=== PATIENT | female | born 1965 | race African-American/Black ===

== ENCOUNTER 2018-02-13 02:10 | Observation (INO) | payer BC, OTHER ==
[2018-02-13 03:07] LABS: Absolute Lymphocytes (CBC) 2.9 K/uL (0.7-4.9); Absolute Monocytes 0.5 K/uL (0.1-1.3); Absolute Neutrophil 5.1 K/uL (1.8-8.0); Basophils % 0.2 % (0-1.3); Eosinophils % 0.8 % (0-4.4); Hematocrit 34.9 % (36.0-45.0); Lymphocytes % 33.7 % (15.3-44.8); MCH 27.9 pg (27.0-35.0); MCV 86.1 fL (80-100); MPV 9.8 fL (7.6-11.3); RBC Red Blood Cell Count 4.06 M/uL (3.86-4.86)
[2018-02-13 03:10] LABS: Protime INR 1.04
[2018-02-13] MEDS ORDERED: ONDANSETRON 4 MG/2 ML VIAL ONE ×2 (03:10→05:02)
[2018-02-13] MEDS ORDERED: ASPIRIN 81 MG CHEWABLE TABLET ONE (03:10)
[2018-02-13] MEDS ORDERED: MORPHINE 4 MG/ML SYR ONE ×2 (03:12→05:02)
[2018-02-13 03:26] LABS: ALT/SGPT 17 U/L (12-78); AST/SGOT 20 U/L (15-37); Albumin 3.3 g/dL (3.4-5.0); Alkaline Phosphatase 93 U/L (45-117); BUN Blood Urea Nitrogen 20 mg/dL (7-18); Bicarbonate 26 mmol/L (21-32); Bilirubin Direct < 0.1 mg/dL (0-0.2); Bilirubin Total 0.2 mg/dL (0.2-1.0); Glucose Level 80 mg/dL (74-106); Magnesium 1.9 mg/dL (1.8-2.4); NT PRO-BNP 123 pg/mL (<125); Protein, Total 7.5 g/dL (6.4-8.2); Sodium Level 142 mmol/L (136-145); Troponin (Emerg Dept Use Only) < 0.02 ng/mL (0.0-0.045)
--- NOTE | 2018-02-13 04:54 | EDPHYS ---
Physician Documentation [facility] Name: Fozia Thomson Age: 52 yrs Sex: Female : 1965 Arrival Date: 02/13/2018 Time: 02:13 Bed 18 Private MD: Fernando Hanson S ED Physician Calin Rice HPI: 02/13 04:41 This 52 yrs old Black Female presents to ER via Ambulatory with complaints of Chest willy Pain. 04:41 The patient or guardian reports chest pain that is located primarily in the substernal willy area. Onset: this morning. The pain radiates to the left arm, Associated signs and symptoms: Pertinent positives:. The chest pain is described as a heaviness, a pressure. Modifying factors: The symptoms are alleviated by nothing. the symptoms are aggravated by nothing. Severity of pain: At its worst the pain was mild moderate in the emergency department the pain has improved moderately. The patient has experienced similar episodes in the past, several times. HIM SPECIALIST: 02:36 LMP N/A - Hysterectomy bb Historical: - Allergies: 02:36 Compazine; bb 02:36 PENICILLINS; bb - Home Meds: 02:36 Alprazolam Oral [Active]; Carisoprodol Oral [Active]; Hydrocodone-Acetaminophen Oral bb [Active]; Isosorbide Mononitrate Oral [Active]; Lasix Oral [Active]; Plaquenil Oral [Active]; Plavix 75 mg Oral tab 1 tab once daily [Active]; Prednisone Oral [Active]; Lunesta oral oral [Active]; Nexium Oral [Active]; Nitroglycerin SL [Active]; aspirin 81 mg Oral chew 1 tab once daily [Active]; Tylenol #3 Oral [Active]; Simvastatin Oral [Active]; Promethazine Oral [Active]; - PMHx: 02:36 CHF; Degenerative disc disease; Hypertension; Lupus; DVT; CAD; bb - PSHx: 02:36 Heart stents; Appendectomy; Cholecystectomy; ; Hysterectomy; neck surgery; bb Angioplasty; colonoscopy; - Immunization history:: Adult Immunizations unknown. - Social history:: Smoking status: Patient/guardian denies using tobacco, Patient/guardian denies using alcohol, street drugs. - Ebola Screening: : No symptoms or risks identified at this time. - Family history:: not pertinent. ROS: 04:41 Constitutional: Negative for fever, chills, and weight loss, Eyes: Negative for injury, willy pain, redness, and discharge, ENT: Negative for injury, pain, and discharge, Neck: Negative for injury, pain, and swelling, Respiratory: Negative for shortness of breath, cough, wheezing, and pleuritic chest pain, Abdomen/GI: Negative for abdominal pain, nausea, vomiting, diarrhea, and constipation, Back: Negative for injury and pain, : Negative for injury, bleeding, discharge, and swelling, MS/Extremity: Negative for injury and deformity, Skin: Negative for injury, rash, and discoloration, Neuro: Negative for headache, weakness, numbness, tingling, and seizure, Psych: Negative for depression, anxiety, suicide ideation, homicidal ideation, and hallucinations, Allergy/Immunology: Negative for hives, rash, and allergies, Endocrine: Negative for neck swelling, polydipsia, polyuria, polyphagia, and marked weight changes, Hematologic/Lymphatic: Negative for swollen nodes, abnormal bleeding, and unusual bruising. 04:41 Cardiovascular: Positive for chest pain, of the chest. Exam: 04:41 Constitutional: This is a well developed, well nourished patient who is awake, alert, willy and in no acute distress. Head/Face: Normocephalic, atraumatic. Eyes: Pupils equal round and reactive to light, extra-ocular motions intact. Lids and lashes normal. Conjunctiva and sclera are non-icteric and not injected. Cornea within normal limits. Periorbital areas with no swelling, redness, or edema. ENT: Nares patent. No nasal discharge, no septal abnormalities noted. Tympanic membranes are normal and external auditory canals are clear. Oropharynx with no redness, swelling, or masses, exudates, or evidence of obstruction, uvula midline. Mucous membranes moist. Neck: Trachea midline, no thyromegaly or masses palpated, and no cervical lymphadenopathy. Supple, full range of motion without nuchal rigidity, or vertebral point tenderness. No Meningismus. Chest/axilla: Normal chest wall appearance and motion. Nontender with no deformity. No lesions are appreciated. Cardiovascular: Regular rate and rhythm with a normal S1 and S2. No gallops, murmurs, or rubs. Normal PMI, no JVD. No pulse deficits. Respiratory: Lungs have equal breath sounds bilaterally, clear to auscultation and percussion. No rales, rhonchi or wheezes noted. No increased work of breathing, no retractions or nasal flaring. Abdomen/GI: Soft, non-tender, with normal bowel sounds. No distension or tympany. No guarding or rebound. No evidence of tenderness throughout. Back: No spinal tenderness. No costovertebral tenderness. Full range of motion. Female : Normal external genitalia. Skin: Warm, dry with normal turgor. Normal color with no rashes, no lesions, and no evidence of cellulitis. Neuro: Awake and alert, GCS 15, oriented to person, place, time, and situation. Cranial nerves II-XII grossly intact. Motor strength 5/5 in all extremities. Sensory grossly intact. Cerebellar exam normal. Normal gait. Psych: Awake, alert, with orientation to person, place and time. Behavior, mood, and affect are within normal limits. 04:41 Musculoskeletal/extremity: Extremities: noted in the left leg: pain, tenderness, DVT Exam: no swelling, negative Homans' sign noted on exam, no appreciated bluish discoloration, no erythema, no increased warmth, pain, tenderness. Vital Signs: 02:36 BP 160 / 76; Pulse 74; Resp 16 S; Pulse Ox 100% on R/A; Weight 129.27 kg (R); Height 5 bb ft. 10 in. (177.80 cm) (R); Pain 9/10; 03:00 BP 105 / 66; Pulse 62; Resp 17; Pulse Ox 100% on R/A; ea 04:16 BP 105 / 60; Pulse 68; Resp 18 S; Pulse Ox 100% ; ea 05:45 BP 110 / 78; Pulse 71; Resp 18; Temp 97.8; Pulse Ox 100% ; ea 06:30 BP 107 / 74; Pulse 67; Resp 18; Temp 98; Pulse Ox 100% on R/A; ea 02:36 Body Mass Index 40.89 (129.27 kg, 177.80 cm) bb MDM: 03:01 Patient medically screened. [facility] 04:50 Data reviewed: vital signs, nurses notes, lab test result(s), EKG, radiologic studies, willy plain films. 02/13 02:28 Order name: Basic Metabolic Panel [id number] 02/13 02:28 Order name: CBC with Diff [facility] 02/13 02:28 Order name: LFT's [facility] 02/13 02:28 Order name: Magnesium [facility] 02/13 02:28 Order name: NT PRO-BNP [facility] 02/13 02:28 Order name: PT-INR [facility] 02/13 02:28 Order name: Troponin (emerg Dept Use Only) [facility] 02/13 02:28 Order name: XRAY Chest (1 view) [facility] 02/13 04:52 Order name: US Extremity Venous W Compression Shawn [facility] 02/13 05:17 Order name: D-Dimer [facility] 02/13 05:35 Order name: Ankle Left 3 View [facility] 02/13 02:28 Order name: EKG; Complete Time: 02:29 [facility] 02/13 02:28 Order name: Cardiac monitoring; Complete Time: 03:17 [facility] 02/13 02:28 Order name: EKG - Nurse/Tech; Complete Time: 02:52 [facility] 02/13 02:28 Order name: IV Saline Lock; Complete Time: 03:15 [facility] 02/13 02:28 Order name: Labs collected and sent; Complete Time: 02:52 [facility] 02/13 02:28 Order name: O2 Per Protocol; Complete Time: 02:53 [facility] 02/13 02:28 Order name: O2 Sat Monitoring; Complete Time: 02:53 [facility] 02/13 02:28 Order name: Urine Dipstick-Ancillary (obtain specimen); Complete Time: 04:29 [facility] 02/13 04:57 Order name: CONS Physician Consult EDWA Administered Medications: 03:05 Drug: morphine 4 mg {Note: right midline.} Route: IVP; Site: Other; ea 03:46 Follow up: Response: No adverse reaction; Pain is decreased ea 03:10 Drug: Aspirin Chewable Tablet 324 mg Route: PO; ea 03:46 Follow up: Response: No adverse reaction ea 03:13 CANCELLED (Other Intervention Used): fentaNYL (PF) 50 mcg IVP once ea 03:14 Drug: Zofran 4 mg {Note: right midline.} Route: IVP; Site: Other; ea 03:46 Follow up: Response: No adverse reaction ea 05:00 Drug: Zofran 4 mg Route: IVP; Site: right upper arm; ea 05:30 Follow up: Response: No adverse reaction; Marked relief of symptoms ea 05:00 Drug: Pepcid 20 mg Route: IVP; Site: right upper arm; ea 05:30 Follow up: Response: No adverse reaction ea 05:02 Drug: morphine 2 mg Route: IVP; Site: right upper arm; ea 05:30 Follow up: Response: No adverse reaction; Pain is decreased ea 05:13 Drug: Lovenox 100 mg Route: Sub-Q; Site: right lower abdomen; ea 06:45 Follow up: Response: No adverse reaction ea Disposition: 02/13/18 04:54 Hospitalization ordered by Eagle Tony for Observation. Preliminary diagnosis are Chest pain, unspecified, Obesity, unspecified, Systemic lupus erythematosus (SLE). - Bed requested for Telemetry/MedSurg (observation). - Status is Observation. ea - Condition is Fair. - Problem is new. - Symptoms have improved. UTI on Admission? No Signatures: Dispatcher [employer] EDMS Eunice Underwood RN RN mw Anderson, Corey, MD MD cha Ballard, Brenda, RN RN bb Roszak, Josh, PA PA [id number] Elizabeth Clark RN RN ea Corrections: (The following items were deleted from the chart) 03:13 03:02 fentaNYL (PF) 50 mcg IVP once ordered. willy king 05:18 04:54 Hospitalization Ordered by Eagle Tony MD for Observation. Preliminary mw diagnosis is Chest pain, unspecified; Obesity, unspecified; Systemic lupus erythematosus (SLE). Bed requested for Telemetry/MedSurg (observation). Status is Observation. Condition is Fair. Problem is new. Symptoms have improved. UTI on Admission? No. [facility] 06:50 05:18 02/13/2018 04:54 Hospitalization Ordered by Eagle Tony MD for Observation. ea Preliminary diagnosis is Chest pain, unspecified; Obesity, unspecified; Systemic lupus erythematosus (SLE). Bed requested for Telemetry/MedSurg (observation). Status is Observation. Condition is Fair. Problem is new. Symptoms have improved. UTI on Admission? No. mw
--- NOTE | 2018-02-13 04:54 | ER ---
Nurse's Notes [facility] Name: Fozia Thomson Age: 52 yrs Sex: Female : 1965 Arrival Date: 02/13/2018 Time: 02:13 Bed 18 Private MD: Fernando Hanson S Diagnosis: Chest pain, unspecified;Obesity, unspecified;Systemic lupus erythematosus (SLE) Presentation: 02/13 02:27 Presenting complaint: Patient states: she has been having chest pain with radiation to bb her left arm and hands also c/o nausea and vomiting pt has hx of DVT and is also having pain to her left leg from her foot up her thigh. Pt was in [place] and waited until she got home to come to ED pt has rx for nitro and took nitro before she left [place] at approx 2230 last night. Transition of care: patient was not received from another setting of care. Onset of symptoms was February 09, 2018. Risk Assessment: Do you want to hurt yourself or someone else? Patient reports no desire to harm self or others. Initial Sepsis Screen: Does the patient meet any 2 criteria? No. Patient's initial sepsis screen is negative. Does the patient have a suspected source of infection? No. Patient's initial sepsis screen is negative. Care prior to arrival: None. 02:27 Method Of Arrival: Ambulatory bb 02:27 Acuity: JUNIE 2 bb SKIN CARE THERAPIST: 02:36 LMP N/A - Hysterectomy bb Historical: - Allergies: 02:36 Compazine; bb 02:36 PENICILLINS; bb - Home Meds: 02:36 Alprazolam Oral [Active]; Carisoprodol Oral [Active]; Hydrocodone-Acetaminophen Oral bb [Active]; Isosorbide Mononitrate Oral [Active]; Lasix Oral [Active]; Plaquenil Oral [Active]; Plavix 75 mg Oral tab 1 tab once daily [Active]; Prednisone Oral [Active]; Lunesta oral oral [Active]; Nexium Oral [Active]; Nitroglycerin SL [Active]; aspirin 81 mg Oral chew 1 tab once daily [Active]; Tylenol #3 Oral [Active]; Simvastatin Oral [Active]; Promethazine Oral [Active]; - PMHx: 02:36 CHF; Degenerative disc disease; Hypertension; Lupus; DVT; CAD; bb - PSHx: 02:36 Heart stents; Appendectomy; Cholecystectomy; ; Hysterectomy; neck surgery; bb Angioplasty; colonoscopy; - Immunization history:: Adult Immunizations unknown. - Social history:: Smoking status: Patient/guardian denies using tobacco, Patient/guardian denies using alcohol, street drugs. - Ebola Screening: : No symptoms or risks identified at this time. - Family history:: not pertinent. Screenin:44 Abuse screen: Denies threats or abuse. Nutritional screening: No deficits noted. ea Tuberculosis screening: No symptoms or risk factors identified. Fall Risk None identified. Assessment: 02:50 General: Appears in no apparent distress. Behavior is calm, cooperative, appropriate ea for age. Pain: Complains of pain in chest and left leg Pain currently is 9.5 out of 10 on a pain scale. Quality of pain is described as aching. Neuro: Level of Consciousness is awake, alert, obeys commands, Oriented to person, place, time, situation. Cardiovascular: Heart tones S1 S2 present Patient's skin is warm and dry. Respiratory: Airway is patent Respiratory effort is even, unlabored, Respiratory pattern is regular, symmetrical, Breath sounds are clear bilaterally. GI: Abdomen is non-distended, Bowel sounds present X 4 quads. Derm: Skin is dry, Skin is normal, Skin temperature is warm. Musculoskeletal: Circulation, motion, and sensation intact. 03:30 Reassessment: Patient and/or family updated on plan of care and expected duration. Pain ea level reassessed. Patient is alert, oriented x 3, equal unlabored respirations, skin warm/dry/pink. awaiting on lab results. 04:32 Reassessment: Patient and/or family updated on plan of care and expected duration. Pain ea level reassessed. Patient is alert, oriented x 3, equal unlabored respirations, skin warm/dry/pink. 05:00 Reassessment: Patient and/or family updated on plan of care and expected duration. Pain ea level reassessed. Patient is alert, oriented x 3, equal unlabored respirations, skin warm/dry/pink. 06:15 Reassessment: Patient and/or family updated on plan of care and expected duration. Pain ea level reassessed. Patient is alert, oriented x 3, equal unlabored respirations, skin warm/dry/pink. Report given to Fredy RN. 06:30 Reassessment: Patient and/or family updated on plan of care and expected duration. Pain ea level reassessed. Patient is alert, oriented x 3, equal unlabored respirations, skin warm/dry/pink. Pt admitted to second floor, left ED per stretcher accompanied by nurse, pt tolerated well. Vital Signs: 02:36 BP 160 / 76; Pulse 74; Resp 16 S; Pulse Ox 100% on R/A; Weight 129.27 kg (R); Height 5 bb ft. 10 in. (177.80 cm) (R); Pain 9/10; 03:00 BP 105 / 66; Pulse 62; Resp 17; Pulse Ox 100% on R/A; ea 04:16 BP 105 / 60; Pulse 68; Resp 18 S; Pulse Ox 100% ; ea 05:45 BP 110 / 78; Pulse 71; Resp 18; Temp 97.8; Pulse Ox 100% ; ea 06:30 BP 107 / 74; Pulse 67; Resp 18; Temp 98; Pulse Ox 100% on R/A; ea 02:36 Body Mass Index 40.89 (129.27 kg, 177.80 cm) bb ED Course: 02:13 Patient arrived in ED. am2 02:13 Fernando Hanson MD is Private Physician. am2 02:32 Triage completed. bb 02:36 Arm band placed on Patient placed in an exam room, on a stretcher, on cardiac rn, bb on pulse oximetry. EKG completed in triage. Results shown to MD. 02:43 Elizabeth Clark RN is Primary Nurse. ea 02:48 X-ray completed. Portable x-ray completed in exam room. Patient tolerated procedure kw well. 02:48 Patient has correct armband on for positive identification. Bed in low position. Call ea light in reach. Side rails up X2. canvas goods supervisor on. Pulse ox on. NIBP on. 02:48 Patient maintains SpO2 saturation greater than 95% on room air. ea 02:49 XRAY Chest (1 view) In Process Unspecified. EDMS 03:01 Calin Rice MD is Attending Physician. willy 04:53 Eagle Tony MD is Hospitalizing Provider. willy 06:14 No provider procedures requiring assistance completed. Patient admitted, IV remains in ea place. Administered Medications: 03:05 Drug: morphine 4 mg {Note: right midline.} Route: IVP; Site: Other; ea 03:46 Follow up: Response: No adverse reaction; Pain is decreased ea 03:10 Drug: Aspirin Chewable Tablet 324 mg Route: PO; ea 03:46 Follow up: Response: No adverse reaction ea 03:13 CANCELLED (Other Intervention Used): fentaNYL (PF) 50 mcg IVP once ea 03:14 Drug: Zofran 4 mg {Note: right midline.} Route: IVP; Site: Other; ea 03:46 Follow up: Response: No adverse reaction ea 05:00 Drug: Zofran 4 mg Route: IVP; Site: right upper arm; ea 05:30 Follow up: Response: No adverse reaction; Marked relief of symptoms ea 05:00 Drug: Pepcid 20 mg Route: IVP; Site: right upper arm; ea 05:30 Follow up: Response: No adverse reaction ea 05:02 Drug: morphine 2 mg Route: IVP; Site: right upper arm; ea 05:30 Follow up: Response: No adverse reaction; Pain is decreased ea 05:13 Drug: Lovenox 100 mg Route: Sub-Q; Site: right lower abdomen; ea 06:45 Follow up: Response: No adverse reaction ea Outcome: 04:54 Decision to Hospitalize by Provider. willy 06:14 Instructed on the need for admit. ea 06:18 Admitted to Med/surg accompanied by marge, aston 407, Report called to Fredy HONEYCUTT ea 06:18 Condition: stable 06:50 Patient left the ED. ea Signatures: Dispatcher [employer] EDOR Calin Rice MD MD cha Ballard, Brenda, RN RN Krista Vieira Amanda am2 Antunez, Elena, RN RN ea
[2018-02-13] MEDS ORDERED: FAMOTIDINE 20 MG/2 ML VIAL IV ONE (05:03)
[2018-02-13] MEDS ORDERED: ENOXAPARIN 100 MG/ML SYR SQ ONE (05:03)
--- NOTE | 2018-02-13 05:42 | P.HP ---
Certification for Inpatient Patient admitted to: Observation With expected LOS: <2 Midnights Practitioner: I am a practitioner with admitting privileges, knowledge of patient current condition, hospital course, and medical plan of care. Services: Services provided to patient in accordance with Admission requirements found in Title 42 Section 412.3 of the Code of Federal Regulations Patient History Date of Service: 02/13/18 Reason for admission: Chest pain History of Present Illness: Ms Thomson is a 52-year-old woman with history of CAD, status post multiple stent placement, obesity, diabetes mellitus types 2, Lupus, DVT in 2006, who was admitted to the hospital due to chest pain in June of this year, with negative workup. At this time she came to ER complaining of left leg pain. The pain starts in her left ankle area, was radiating up to the knee. Her symptoms started about 2 days ago the patient denied any trauma on her left leg. She also is complaining of pressure-like chest pain associated with nausea, radiated to left arm and left side of the neck. She has had this symptom in the past. She denied any shortness of breath or dizziness. Lab work shows normal WBC count, troponin I is negative, EKG sinus rhythm without ST-T abnormalities. Allergies Penicillins Allergy (Verified 08/01/12 09:32) Itching/Hives/Rash prochlorperazine edisylate [From Compazine] Allergy (Verified 08/01/12 09:32) Itching/Hives/Rash prochlorperazine maleate [From Compazine] Allergy (Verified 08/01/12 09:32) Itching/Hives/Rash PCN Allergy (Uncoded 09/17/13 00:17) Unknown Home medications list reviewed: Yes Home Medications: Alprazolam 2 mg PO TIDP PRN 03/04/14 Carisoprodol 350 mg PO QID 03/04/14 Esomeprazole Magnesium [Nexium] 40 mg PO DAILY 03/04/14 Furosemide 20 mg PO DAILY 03/04/14 Glipizide 5 mg PO DAILY 03/04/14 Hydrocodone Bit/Acetaminophen [Hydrocodon-Acetaminophn 10-325] 1 tab PO Q4HP PRN 03/04/14 Isosorbide Mononitrate [Imdur] 30 mg PO DAILY 03/04/14 Promethazine Tab [Phenergan*] 25 mg PO Q4HP PRN 03/04/14 Sertraline HCl 50 mg PO DAILY 03/04/14 Simvastatin 40 mg PO BEDTIME 03/04/14 Trazodone HCl [Desyrel] 100 mg PO BEDTIME 03/04/14 Zolpidem Tartrate 10 mg PO BEDTIME 03/04/14 Clopidogrel Bisulfate [Plavix] 75 mg PO DAILY 07/15/17 - Past Medical/Surgical History Diabetic: Yes -: NIDDM -: HTN -: PA -: Lupus -: DVT -: coronary stents -: appendectomy -: choley -: c section x4 -: hysterctomy - Family History Father -: Heart disease Sister -: Heart disease Mother -: Heart disease - Social History Smoking Status: Never smoker Alcohol use: Yes CD- Drugs: No Caffeine use: Yes Place of Residence: Home Review of Systems 10-point ROS is otherwise unremarkable Physical Examination - Physical Exam General: Alert, In no apparent distress HEENT: Atraumatic, PERRLA, Mucous membr. moist/pink, EOMI, Sclerae nonicteric Neck: Supple, 2+ carotid pulse no bruit, No LAD, Without JVD or thyroid abnormality Respiratory: Clear to auscultation bilaterally, Normal air movement Cardiovascular: Regular rate/rhythm, Normal S1 S2 Gastrointestinal: Normal bowel sounds, No tenderness Musculoskeletal: Tenderness (Left leg tender to palpation, specifically in her ankle area) Integumentary: No rashes Neurological: Normal speech, Normal strength at 5/5 x4 extr, Normal tone, Normal affect Lymphatics: No axilla or inguinal lymphadenopathy - Studies Laboratory Data (last 24 hrs) 02/13/18 03:00: PT 12.3, INR 1.04 02/13/18 03:00: WBC 8.7, Hgb 11.3 L, Hct 34.9 L, Plt Count 231 02/13/18 03:00: Sodium 142, Potassium 4.0, BUN 20 H, Creatinine 0.90, Glucose 80 , Magnesium 1.9, Total Bilirubin 0.2, AST 20, ALT 17, Alkaline Phosphatase 93 Assessment and Plan - Problems (Diagnosis) (1) Left leg pain Current Visit: Yes Status: Acute (2) History of DVT (deep vein thrombosis) Current Visit: Yes Status: Acute (3) Chest pain Onset Date: 07/17/17 Current Visit: No Status: Acute Qualifiers: Chest pain type: precordial pain Qualified Code(s): R07.2 - Precordial pain (4) CAD (coronary artery disease) Onset Date: 03/04/14 Current Visit: No Status: Chronic Qualifiers: Coronary Disease-Associated Artery/Lesion type: [place] artery [place] vs. transplanted heart: [place] heart Associated angina: angina presence unspecified Qualified Code(s): I25.10 - Atherosclerotic heart disease of [place] coronary artery without angina pectoris (5) Diabetes mellitus Onset Date: 03/04/14 Current Visit: No Status: Chronic Qualifiers: Diabetes mellitus type: type 2 Diabetes mellitus snf insulin use: without computer terminal operator use Diabetes mellitus complication status: with unspecified complications Qualified Code(s): E11.8 - Type 2 diabetes mellitus with unspecified complications (6) Hypertension Onset Date: 03/04/14 Current Visit: No Status: Chronic Qualifiers: Hypertension type: essential hypertension Qualified Code(s): I10 - Essential (primary) hypertension (7) Lupus (systemic lupus erythematosus) Current Visit: No Status: Chronic Qualifiers: Systemic lupus erythematosus type: other Systemic lupus erythematosus organ involvement: other Qualified Code(s): M32.19 - Other organ or system involvement in systemic lupus erythematosus - Plan The patient will be admitted to the hospital due to left leg pain and chest pain. Initial troponin I is negative, EKG without significant changes. Will order serial troponin I and EKG. Previously, in 07/14, she had a NM stress test showing a septal scar but negative for acute ischemia. Cardiology has been consulted for a new evaluation. I will order D-dimer, and left ankle x- ray for that leg pain. - Advance Directives Does patient have a Living Will: No Does patient have a Durable POA for Healthcare: No - Code Status/Comfort Care Code Status Assessed: Yes Code Status: Full Code
[2018-02-13 06:55] VITALS: O2SAT 100
[2018-02-13] MEDS ORDERED: ACETAMINOPHEN 500 MG TAB PO PRN (06:55)
[2018-02-13] MEDS ORDERED: ONDANSETRON 4 MG/2 ML VIAL IV PRN (06:55)
--- NOTE | 2018-02-13 07:07 | RAD REPORT ---
EXAM DESCRIPTION: RAD - Chest Single View - 02/13/2018 2:49 am CLINICAL HISTORY: Chest pain radiating to the left arm COMPARISON: Portable chest July 15 TECHNIQUE: AP portable chest image was obtained [id number] hours . FINDINGS: Lungs are clear. Heart is upper normal and vasculature is normal. No measurable pleural ef fusion and no pneumothorax. No acute bony abnormality seen. No acute aortic findings suspected. IMPRESSION: No acute cardiopulmonary process. No significant change from the comparison.
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
--- NOTE | 2018-02-13 07:10 | RAD REPORT ---
EXAM DESCRIPTION: US - Extrem Venous W Compress Shawn - 02/13/2018 7:05 am CLINICAL HISTORY: Left leg pain and swelling COMPARISON: None. TECHNIQUE: Real-time sonographic evaluation of the left lower extremity deep venous system was perfo rmed. FINDINGS: Normal compressibility, flow augmentation, phasic flow and spontaneous flow are identified in the left lower extremity common femoral, superficial femoral, popliteal and posterior tibial vein s. No intraluminal filling defects seen. IMPRESSION: No DVT in the left lower extremity.
[2018-02-13 08:43] VITALS: BP 111/64; TEMP 97
[2018-02-13] MEDS ORDERED: ENOXAPARIN 40 MG/0.4 ML SQ SCH (09:00)
[2018-02-13] MEDS ORDERED: MORPHINE 4 MG/ML SYR IV PRN (09:14)
[2018-02-13 10:23] VITALS: BMI 44.9
[2018-02-13] MEDS ORDERED: ALPRAZOLAM 1 MG TABLET PO PRN (12:51)
[2018-02-13] MEDS ORDERED: HYDROCODONE/APAP 10/325 TAB PO PRN (12:51)
[2018-02-13] MEDS ORDERED: NITROGLYCERIN 0.4 MG/TAB SL PRN (12:51)
[2018-02-13] MEDS ORDERED: CARISOPRODOL 350 MG TAB PO SCH (13:00)
[2018-02-13 14:58] LABS: Urine Appearance CLEAR; Urine Bilirubin NEGATIVE (NEG); Urine Blood NEGATIVE (NEG); Urine Color YELLOW; Urine Glucose NEGATIVE (NEG); Urine Protein 1+ (NEG); Urine Specific Gravity 1.025 (1.005-1.030); Urine Urobilinogen 0.2 mg/dL (0.2-1.0)
[2018-02-13 15:00] LABS: Urine Microscopic Reflex ORDER UMIC
[2018-02-13 15:07] LABS: Urine Bacteria NONE SEEN /HPF (<20); Urine Culture Reflex Order NOT NEEDED; Urine RBC NONE SEEN /HPF (NONE SEEN)
[2018-02-13] MEDS ORDERED: TRAZODONE 50 MG TABLET PO SCH (21:00)
[2018-02-13] MEDS ORDERED: ATORVASTATIN 20 MG TAB PO SCH (21:00)
[2018-02-13] MEDS ORDERED: ZOLPIDEM TARTRATE 10 MG TABLET PO SCH (21:00)
--- NOTE | 2018-02-14 05:34 | DS ---
Date of Discharge: 02/13/2018 Consultants: Dr. Meneses with Cardiology. Admitting Diagnoses: 1.Unstable angina. 2.Left neck pain. 3.History of deep venous thrombosis. 4.Coronary artery disease, [place] artery and [place] heart, with angina. 5.Diabetes mellitus type 2 with hyperglycemia, without long-term use of the insulin. 6.Essential hypertension. 7.Lupus. 8.Morbid obesity. Hospital Course: The patient is a 52-year-old female with history of coronary artery disease, status post multiple stents, with recent stress test which was negative; obesity; diabetes; lupus; DVT, who comes in with left leg pain along with some chest pain. The patient does state that she had a fall after tripping in tub and had fallen. The patient's workup including ankle x-ray did not show any fr actures, did show some soft tissue swelling. A Doppler ultrasound was done to rule out DVT, which wa s negative on the same side. Chest x-ray showed no acute process or significant change from previous . D-dimer was also checked which was negative as the patient does have history of previous DVT. Oth erwise, her cardiac enzymes were negative. She was seen by Cardiology, Dr. Meneses, who did not amy mmend any further invasive testing. The patient has had recent stress test, which was negative, gabbi ier this year. The patient's symptoms improved. She was still complaining of some pain all over her body. It should be noted that the patient is on multiple narcotics including hydrocodone as well as Tylenol No. 3, also takes Soma and takes trazodone. The patient has had multiple visits to the hosp ital. The patient otherwise was doing well. She was able to ambulate without difficulty. [facility] for [facility] from Cardiology standpoint. 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 Follow up with Cardiology, Dr. Meneses, in 2-4 weeks. Activities: No driving or operating heavy machinery while on narcotics. Diet: Diabetic. Medications: As per medication reconciliation list. The patient is on multiple narcotics and sedati ve drugs and is at risk for dependency and possibly overdose. The patient was counseled extensively. States that she only takes hydrocodone p.r.n. and minimally takes Tylenol No. 3. No longer taking trazodone; however, this is unconfirmed. Physical Examination: General: Awake, alert, oriented, morbidly obese female. CV: S1, S2. No murmurs. Respiratory: Moving air well bilaterally. Abdomen: Soft, nontender, nondistended. Positive bowel sounds. Extremities: No clubbing or cyanosis. Does have some edema on the left ankle. Neurologic: Nonfocal. SA/MODL Voice ID: [id number] Report ID: [id number]
--- NOTE | 2018-02-14 06:01 | CON ---
Date of Consultation: 02/13/[address] Ventura's service for chest pain on 02/13/2018. I saw the patient on 02/13/2018. History Of Present Illness: Ms. Thomson is a 52-year-old black woman. She is very well known to us f rom previous office visits and admissions. She came in with chest pain that has been going on for ab out 8 days. She had ran out of all her medications. Her chest pain is very atypical. She actually has a completely positive review of system from headaches to nausea, back pain, arm pain, chest pain, palpitations, weakness, stress, neck pain, abdominal pain. Her troponin was negative and her EKG wa s negative. Catheterization in 2013 showed a patent mid LAD stent. An echocardiogram and a Lexiscan in June 2017 was normal. Her CPKs, MBs, troponin were negative. She is feeling tired now, but no chest pains. Past Medical History: Includes anxiety; depression, diabetes; dyslipidemia; coronary artery disease, status post LAD stent; lupus arthritis; and morbid obesity. Allergies: SHE IS ALLERGIC TO PENICILLIN. Review of Systems: Negative. Social History: Negative. Family History: Negative. Medications: At home include Imdur, Xanax, Plavix, Nexium, Lasix, glipizide, and Zocor. Physical Examination: General: She is morbidly obese. Vital Signs: Stable. Afebrile. Sinus rhythm. HEENT: Negative. Neck: Supple with no bruit. Chest: Clear. Cardiac: Reveals a regular rhythm and rate. No murmurs, gallops, or rubs. Abdomen: Benign. Extremities: Revealed no clubbing, cyanosis, or edema on the right side. She has some edema on the left side. Diagnostic Data: Included a negative venous Doppler bilaterally. Otherwise, the rest of it was stat ed earlier. Impression And Plan: 1.Atypical chest pain, noncardiac. I think most of her symptoms are secondary to anxiety and depres jeanne and stress. She could have a viral syndrome that explains her review of systems being positive throughout her systems. She just had an echocardiogram and a Lexiscan in June 2017. Her EKG is nor mal. Her CPKs, MBs, and troponin are negative, and as such, I do not plan to repeat her cardiac work up at this point. She does not need to have a heart catheterization. She has run out of her medicat ion for about a week and I think we need to resume her medication. Consider adding a beta-tanya. 2.Diabetes and dyslipidemia, well controlled. She can go home whenever it is okay with Dr. Ventura. JAZMINE/YOJANA Voice ID: [id number] Report ID: [id number]
[2018-02-14] MEDS ORDERED: PANTOPRAZOLE 40MG TABLET PO SCH (06:30)
--- NOTE | 2018-02-14 06:53 | EKG ---
Test Date: 2018-02-13 Test Time: 02:16:38 Gem Cutter: ABBEY MEASUREMENT RESULTS: Intervals: Rate: 78 [place]: 210 QRSD: 72 QT: 372 QTc: 424 [place]: P: 76 [place]: 210 QRS: 67 T: 63 INTERPRETIVE STATEMENTS: Sinus rhythm with 1st degree AV block Cannot rule out Anterior infarct, age undetermined Abnormal ECG Compared to ECG 07/15/2017 08:16:36 Myocardial infarct finding now present Electronically Signed On 02-14-18 06:49:32 CDT by Raj Meneses
[2018-02-14] MEDS ORDERED: glipiZIDE 5 MG TAB PO SCH (08:00)
[2018-02-14] MEDS ORDERED: SERTRALINE HCL 50 MG TAB PO SCH (09:00)
[2018-02-14] MEDS ORDERED: CLOPIDOGREL 75 MG TABLET PO SCH (09:00)
[2018-02-14] MEDS ORDERED: ISOSORBIDE MONO SR 30 MG TAB PO SCH (09:00)
[2018-02-14] MEDS ORDERED: FUROSEMIDE 20 MG TABLET PO SCH (09:00)
== END 2018-02-13 15:00 | disposition left against medical advice (07) ==
LOC: ER 02:10 → EEVIPCON 04:55 → 4TH 04:55
PROVIDERS: ADMIT Internal Medicine; ATTEND Internal Medicine
DX: I25.110 Atherosclerotic heart disease of native coronary artery with unstable angina pectoris (principal); E11.65 Type 2 diabetes mellitus with hyperglycemia; M54.2 Cervicalgia; E66.01 Morbid (severe) obesity due to excess calories; Z68.41 Body mass index [BMI] 40.0-44.9, adult; I10 Essential (primary) hypertension; M32.9 Systemic lupus erythematosus, unspecified; Z86.718 Personal history of other venous thrombosis and embolism; Z95.5 Presence of coronary angioplasty implant and graft; Z88.0 Allergy status to penicillin
CPT/HCPCS: 36415; 71045; 80048; 80076; 81003; 81015; 82962; 83735; 83880; 84484; 85025; 85379; 85610; 87086; 87088; 93005; 93970; 96372; 99285; G0378; J1650; J2405

== ENCOUNTER 2018-05-09 04:56 | Emergency (ER) | payer BC ==
--- OUTSIDE RECORDS SUMMARY | 2018-05-09 04:59 | XMS REPORT ---
:1965 [facility] [address] [place] [address] Care Team Providers Name Role Phone Unavailable Unavailable Unavailable Problems This patient has no known problems. Allergies, Adverse Reactions, Alerts This patient has no known allergies or adverse reactions. Medications This patient has no known medications.
[2018-05-09] MEDS ORDERED: ONDANSETRON 4 MG/2 ML VIAL ONE (06:05)
[2018-05-09] MEDS ORDERED: LEVALBUTEROL 1.25 MG/3 ML NEB ONE (06:05)
[2018-05-09 06:31] LABS: Absolute Lymphocytes (CBC) 1.7 K/uL (0.7-4.9); Absolute Monocytes 0.5 K/uL (0.1-1.3); Absolute Neutrophil 7.4 K/uL (1.8-8.0); Basophils % 0.3 % (0-1.3); Eosinophils % 1.1 % (0-4.4); Lymphocytes % 17.1 % (15.3-44.8); Monocytes % 5.5 % (3.3-12.3); RBC Red Blood Cell Count 3.44 M/uL (3.86-4.86)
[2018-05-09 06:46] LABS: Protime INR 1.1
[2018-05-09 06:51] LABS: ALT/SGPT 19 U/L (12-78); AST/SGOT 45 U/L (15-37); Albumin 2.8 g/dL (3.4-5.0); Alkaline Phosphatase 88 U/L (45-117); BUN Blood Urea Nitrogen 36 mg/dL (7-18); Bicarbonate 24 mmol/L (21-32); Bilirubin Direct 0.1 mg/dL (0-0.2); Bilirubin Total 0.3 mg/dL (0.2-1.0); Glucose Level 89 mg/dL (74-106); Lipase 63 U/L (73-393); NT PRO-BNP 147 pg/mL (<125); Potassium 3.6 mmol/L (3.5-5.1); Protein, Total 6.7 g/dL (6.4-8.2); Sodium Level 140 mmol/L (136-145); Troponin (Emerg Dept Use Only) < 0.02 ng/mL (0.0-0.045)
--- NOTE | 2018-05-09 07:48 | ER ---
Nurse's Notes [facility] Name: Fozia Thomson Age: 53 yrs Sex: Female : 1965 Arrival Date: 05/09/2018 Time: 04:57 Bed 2 Private MD: Diagnosis: Chest pain, unspecified;Gastritis, unspecified, with bleeding Presentation: 05/09 05:00 Presenting complaint: Patient states: that she was discharged from [facility] yesterday at 1545 and was suppose to go straight to the cardiologists office for transfer to [facility] to have stress test and heart cath done. She did not go and went home instead. Continued to have chest pressure along with shortness of breath and vomiting so she had someone bring her here. Transition of care: patient was not received from another setting of care. Onset of symptoms was May 08, 2018. Risk Assessment: Do you want to hurt yourself or someone else? Patient reports no desire to harm self or others. Initial Sepsis Screen: Does the patient meet any 2 criteria? HR > 90 bpm. No. Patient's initial sepsis screen is negative. Does the patient have a suspected source of infection? No. Patient's initial sepsis screen is negative. Care prior to arrival: None. 05:00 Method Of Arrival: Ambulatory 05:00 Acuity: JUNIE 3 Triage Assessment: 09:17 Respiratory: Onset: The symptoms/episode began/occurred. 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 N/A - Hysterectomy Historical: - Allergies: 05:27 Compazine; 05:27 PENICILLINS; fc - Home Meds: 05:27 Plaquenil Oral 2 times per day [Active]; Glipizide Oral 2 times per day [Active]; fc hydrocodone-acetaminophen 10-325 mg oral tab 1 tab qid prn [Active]; Nitroglycerin SL 1 tab q 5 minutes prn [Active]; Isosorbide Mononitrate Oral once daily [Active]; Tylenol #3 Oral qid prn [Active]; aspirin 81 mg Oral chew 1 tab once daily [Active]; Lasix Oral once daily [Active]; Plavix 75 mg Oral tab 1 tab once daily [Active]; Prednisone Oral [Active]; - PMHx: 05:27 Degenerative disc disease; Lupus; Hypertension; CAD; CHF; DVT; Diabetes - NIDDM; Acute fc Renal Failure; Joint pain; Chronic pain; - PSHx: 05:27 ; Hysterectomy; Cholecystectomy; neck surgery; Heart stents; Appendectomy; fc Angioplasty; colonoscopy; - Immunization history:: Last tetanus immunization: unknown, Flu vaccine status is unknown. - Social history:: Smoking status: Patient/guardian denies using tobacco, Patient uses alcohol, only on a social basis. Patient/guardian denies using street drugs. - Ebola Screening: : Patient negative for fever greater than or equal to 101.5 degrees Fahrenheit, and additional compatible Ebola Virus Disease symptoms Patient denies exposure to infectious person Patient denies travel to an Ebola-affected area in the 21 days before illness onset. Screenin:00 Abuse screen: Denies threats or abuse. Nutritional screening: No deficits noted. fc Tuberculosis screening: No symptoms or risk factors identified. Fall Risk None identified. Assessment: 06:00 General: Appears obese, Behavior is drowsy. Pain: Complains of pain in chest. Neuro: ea Level of Consciousness is obeys commands, Groggy . Oriented to person, place, time. Cardiovascular: Patient's skin is warm and dry. Rhythm is sinus tachycardia. Respiratory: Airway is patent Respiratory effort is even, unlabored, Breath sounds with rhonchi Parent/caregiver reports the patient having cough that is productive, hacking, persistent. GI: Abdomen is obese, Bowel sounds present X 4 quads. Reports nausea, vomiting. Derm: Skin is dry, Skin is normal, Skin temperature is warm. 07:00 Reassessment: RECD REPORT ELIZABETH HONEYCUTT. 53YO BF P/W SOB, CP AND VOMITING. DISPO PENDING. bp 07:53 Reassessment: D/C ON HOLD FOR GASTROCCULT RESULTS. PT AMBULATED TO BATHROOM. bp 08:53 Reassessment: pt states her ride will be here within 30 minutes, is coming from [facility]. Vital Signs: 05:00 BP 121 / 79; Pulse 118; Resp 20; Temp 98.4(O); Pulse Ox 100% on R/A; Weight 143.34 kg fc (R); Height 5 ft. 10 in. (177.80 cm) (R); Pain 9/10; 06:33 BP 124 / 81; Pulse 104; Resp 14; Pulse Ox 100% ; ea 07:23 BP 103 / 74; Pulse 103; Resp 20; Pulse Ox 100% on R/A; bp 05:00 Body Mass Index 45.34 (143.34 kg, 177.80 cm) ED Course: 04:57 Patient arrived in ED. ds1 05:00 Arm band placed on Patient placed in an exam room, on a stretcher. fc 05:00 Patient has correct armband on for positive identification. Placed in gown. Bed in low fc position. Call light in reach. Side rails up X2. 05:00 No provider procedures requiring assistance completed. fc 05:21 Triage completed. fc 05:51 Inserted 18 gauge 10 cm midline to left upper basilic vein on first attempt. Line with fc good blood return and flushes well. 06:07 Elizabeth Clark RN is Primary Nurse. ea 06:16 Hoang Yang MD is Attending Physician. gs 06:42 called cardiology line to get ahold of dr mccoy for dr yang to consult. gm 06:44 XRAY CXR (1 view) In Process Unspecified. EDMS 06:58 Report given to RAMEZ RN and Danny RN. ea 07:07 Primary Nurse role handed off by Elizabeth Clark RN bp 07:07 Danny Navarrete RN is Primary Nurse. bp 08:00 IV discontinued, intact, bleeding controlled, No redness/swelling at site. Pressure bp dressing applied. 08:19 Abrahan Mccoy MD is Referral Physician. gs 08:20 William Jones MD is Referral Physician. gs Administered Medications: 06:00 Drug: Zofran 4 mg Route: IVP; Site: left upper arm; ea 07:36 Follow up: Response: No adverse reaction; Nausea is decreased bp 06:07 Drug: Xopenex 1.25 mg Route: Inhalation; ea 08:18 Drug: ProTONIX 40 mg Route: PO; bp 08:19 Follow up: Response: Medication administered at discharge. bp Outcome: 07:47 Discharge ordered by . gs 08:20 Discharge ordered by . gs 09:16 Discharged to home via wheelchair, with family. bp 09:16 Condition: stable 09:16 Discharge instructions given to patient, Instructed on discharge instructions, follow up and referral plans. Demonstrated understanding of instructions, follow-up care. 09:17 Patient left the ED. bp Signatures: Dispatcher [employer] EDDE Kaylin Acosta, RN RN fc Kain, Zuri ds1 Ginger Davila, RN RN iw Elizabeth Clark RN RN ea Starr, Gregory, MD MD gs Peltier, Brian RN RN Goldie Franco gm
--- NOTE | 2018-05-09 07:49 | EDPHYS ---
Physician Documentation [facility] Name: Fozia Thomson Age: 53 yrs Sex: Female : 1965 Arrival Date: 05/09/2018 Time: 04:57 Bed 2 Private MD: ED Physician Hoang Murphy HPI: 05/09 07:40 This 53 yrs old Black Female presents to ER via Ambulatory with complaints of chest gs pain. 07:44 The patient or guardian reports chest pain that is located primarily in the anterior gs chest wall. Onset: 1 week(s) ago. The pain does not radiate. Associated signs and symptoms: Pertinent positives: shortness of breath. The chest pain is described as a pressure. Duration: The patient or guardian reports multiple episodes, that are intermittent, that wax and wane, with no pattern, the episodes last approximately 3 minute(s). Severity of pain: At its worst the pain was moderate in the emergency department the pain has improved markedly. The patient has experienced similar episodes in the past, chronically. The patient has been recently seen by a physician: in the hospital, 1 day(s) ago. 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 N/A - Hysterectomy fc Historical: - Allergies: 05:27 Compazine; 05:27 PENICILLINS; fc - Home Meds: 05:27 Plaquenil Oral 2 times per day [Active]; Glipizide Oral 2 times per day [Active]; fc hydrocodone-acetaminophen 10-325 mg oral tab 1 tab qid prn [Active]; Nitroglycerin SL 1 tab q 5 minutes prn [Active]; Isosorbide Mononitrate Oral once daily [Active]; Tylenol #3 Oral qid prn [Active]; aspirin 81 mg Oral chew 1 tab once daily [Active]; Lasix Oral once daily [Active]; Plavix 75 mg Oral tab 1 tab once daily [Active]; Prednisone Oral [Active]; - PMHx: 05:27 Degenerative disc disease; Lupus; Hypertension; CAD; CHF; DVT; Diabetes - NIDDM; Acute fc Renal Failure; Joint pain; Chronic pain; - PSHx: 05:27 ; Hysterectomy; Cholecystectomy; neck surgery; Heart stents; Appendectomy; fc Angioplasty; colonoscopy; - Immunization history:: Last tetanus immunization: unknown, Flu vaccine status is unknown. - Social history:: Smoking status: Patient/guardian denies using tobacco, Patient uses alcohol, only on a social basis. Patient/guardian denies using street drugs. - Ebola Screening: : Patient negative for fever greater than or equal to 101.5 degrees Fahrenheit, and additional compatible Ebola Virus Disease symptoms Patient denies exposure to infectious person Patient denies travel to an Ebola-affected area in the 21 days before illness onset. ROS: 07:44 All other systems are negative. gs 08:14 Abdomen/GI: Positive for has some reflux brown/black mucous, saw dr gurrola yesterday gs for same rx esomeprazole. hemoccult of same was +, pt having no pain, no melena, hb down 1 gm since 02/13 mcv normal. notified pt of findings that this was bleeding. offered transfer, gi evaluation, understands what is going on with her. wants to be referred to gi and dr clayton. Exam: 07:44 Head/Face: Normocephalic, atraumatic. Eyes: Pupils equal round and reactive to light, gs extra-ocular motions intact. Lids and lashes normal. Conjunctiva and sclera are non-icteric and not injected. Cornea within normal limits. Periorbital areas with no swelling, redness, or edema. ENT: Nares patent. No nasal discharge, no septal abnormalities noted. Tympanic membranes are normal and external auditory canals are clear. Oropharynx with no redness, swelling, or masses, exudates, or evidence of obstruction, uvula midline. Mucous membranes moist. Neck: Trachea midline, no thyromegaly or masses palpated, and no cervical lymphadenopathy. Supple, full range of motion without nuchal rigidity, or vertebral point tenderness. No Meningismus. Chest/axilla: Normal chest wall appearance and motion. Nontender with no deformity. No lesions are appreciated. Cardiovascular: Regular rate and rhythm with a normal S1 and S2. No gallops, murmurs, or rubs. Normal PMI, no JVD. No pulse deficits. Respiratory: Lungs have equal breath sounds bilaterally, clear to auscultation and percussion. No rales, rhonchi or wheezes noted. No increased work of breathing, no retractions or nasal flaring. Abdomen/GI: Soft, non-tender, with normal bowel sounds. No distension or tympany. No guarding or rebound. No evidence of tenderness throughout. Back: No spinal tenderness. No costovertebral tenderness. Full range of motion. Skin: Warm, dry with normal turgor. Normal color with no rashes, no lesions, and no evidence of cellulitis. MS/ Extremity: Pulses equal, no cyanosis. Neurovascular intact. Full, normal range of motion. Neuro: Awake and alert, GCS 15, oriented to person, place, time, and situation. Cranial nerves II-XII grossly intact. Motor strength 5/5 in all extremities. Sensory grossly intact. Cerebellar exam normal. Normal gait. 07:44 Constitutional: The patient appears alert, awake. 07:44 ECG was reviewed by the Attending Physician. Vital Signs: 05:00 BP 121 / 79; Pulse 118; Resp 20; Temp 98.4(O); Pulse Ox 100% on R/A; Weight 143.34 kg fc (R); Height 5 ft. 10 in. (177.80 cm) (R); Pain 9/10; 06:33 BP 124 / 81; Pulse 104; Resp 14; Pulse Ox 100% ; ea 07:23 BP 103 / 74; Pulse 103; Resp 20; Pulse Ox 100% on R/A; bp 05:00 Body Mass Index 45.34 (143.34 kg, 177.80 cm) fc MDM: 05:32 Patient medically screened. ca 07:44 Differential diagnosis: abnormal EKG, coronary artery disease chest wall pain. Data reviewed: vital signs, nurses notes, old medical records, recent ct chest negative, having no acute signs of pe or dvt lab test result(s), EKG. Physician consultation: Abrahan Scott MD and will see patient in office, shortly. 07:48 ED course: resolve no chest pain. 05/09 05:31 Order name: BMP; Complete Time: 06:53 05/09 05:31 Order name: CBC with Diff; Complete Time: 06:53 05/09 05:31 Order name: D-Dimer; Complete Time: 06:59 05/09 05:31 Order name: Hepatic Function; Complete Time: 06:53 05/09 05:31 Order name: Lipase; Complete Time: 06:53 05/09 05:31 Order name: NT PRO-BNP; Complete Time: 06:53 05/09 05:31 Order name: XRAY CXR (1 view); Complete Time: 08:26 05/09 05:31 Order name: PT-INR; Complete Time: 06:59 05/09 05:31 Order name: Troponin (emerg Dept Use Only); Complete Time: 06:53 05/09 05:31 Order name: EKG; Complete Time: 05:32 05/09 08:09 Order name: Occult Blood--Ancillary 05/09 05:31 Order name: Cardiac monitoring; Complete Time: 05:44 05/09 05:31 Order name: EKG - Nurse/Tech; Complete Time: 05:44 05/09 05:31 Order name: IV Saline Lock; Complete Time: 05:47 05/09 05:31 Order name: Labs collected and sent; Complete Time: 05:47 05/09 05:31 Order name: O2 Per Protocol; Complete Time: 05:44 05/09 05:31 Order name: O2 Sat Monitoring; Complete Time: 05:44 ca EC:44 Rate is 109 beats/min. Rhythm is regular, Normal Sinus Rhythm. GA interval is normal. gs QRS interval is normal. T waves are Flattened in leads I, aVL. No ST changes noted. Clinical impression: Abnormal EKG without significant change. Interpreted by me. Administered Medications: 06:00 Drug: Zofran 4 mg Route: IVP; Site: left upper arm; ea 07:36 Follow up: Response: No adverse reaction; Nausea is decreased bp 06:07 Drug: Xopenex 1.25 mg Route: Inhalation; ea 08:18 Drug: ProTONIX 40 mg Route: PO; bp 08:19 Follow up: Response: Medication administered at discharge. bp Disposition: 05/09/18 08:20 Discharged to Home. Impression: Chest pain, unspecified, Gastritis, unspecified, with bleeding. - Condition is Stable. - Discharge Instructions: Nonspecific Chest Pain, Gastritis, Adult, Managing Your Hypertension. - Medication Reconciliation Form, Thank You Letter, Antibiotic Education, Prescription Opioid Use form. - Follow up: Abrahan Scott MD; When: Today; Reason: Re-evaluation by your physician. Follow up: William Jones MD; When: 2 - 3 days; Reason: Re-evaluation by your physician. Signatures: Dispatcher [employer] EDMS Kaylin Acosta, RN RN Elizabeth Clark RN RN Hoang Das MD MD gs [place]iah, William, MD MD wa Peltier, Brian RN RN bp Corrections: (The following items were deleted from the chart) 08:07 07:47 05/09/2018 07:47 Discharged to Home. Impression: Chest pain, unspecified. gs Condition is Stable. Forms are Medication Reconciliation Form, Thank You Letter, Antibiotic Education, Prescription Opioid Use. Follow up: Private Physician; When: Today; Reason: Recheck today's complaints, Re-evaluation by your physician. 08:20 08:20 05/09/2018 08:20 Discharged to Home. Impression: Chest pain, unspecified; gs Gastritis, unspecified, with bleeding. Condition is Stable. Forms are Medication Reconciliation Form, Thank You Letter, Antibiotic Education, Prescription Opioid Use. Follow up: Abrahan Scott; When: Today; Reason: Re-evaluation by your physician. 09:17 08:20 05/09/2018 08:20 Discharged to Home. Impression: Chest pain, unspecified; bp Gastritis, unspecified, with bleeding. Condition is Stable. Discharge Instructions: Nonspecific Chest Pain, Gastritis, Adult, Managing Your Hypertension. Forms are Medication Reconciliation Form, Thank You Letter, Antibiotic Education, Prescription Opioid Use. Follow up: Abrahan Scott; When: Today; Reason: Re-evaluation by your physician. Follow up: William Jones; When: 2 - 3 days; Reason: Re-evaluation by your physician.
--- NOTE | 2018-05-09 08:21 | RAD REPORT ---
EXAM DESCRIPTION: Vickie Single View05/09/2018 6:42 am CLINICAL HISTORY: Chest pain COMPARISON: January 2018 FINDINGS: The lungs appear clear of acute infiltrate. The heart is normal size IMPRESSION: No acute abnormalities displayed
[2018-05-09] MEDS ORDERED: PANTOPRAZOLE 40MG TABLET PO ONE (08:24)
[2018-05-09 09:27] VITALS: TEMP 98.4; O2SAT 100
[2018-05-09 09:37] VITALS: BP 103/74
--- NOTE | 2018-05-09 09:38 | EKG ---
Test Date: 2018-05-09 Test Time: 05:11:00 Sql Report Analyst: EVIE MEASUREMENT RESULTS: Intervals: Rate: 109 [place]: 174 QRSD: 76 QT: 340 QTc: 457 [place]: P: 77 [place]: 174 QRS: 22 T: 51 INTERPRETIVE STATEMENTS: Sinus tachycardia Otherwise normal ECG Compared to ECG 02/13/2018 02:16:38 Sinus rhythm no longer present First degree AV block no longer present Myocardial infarct finding no longer present Electronically Signed On 05-09-18 09:37:48 [employer] by Stef Olivo
== END 2018-05-09 09:17 | disposition home or self-care (01) ==
LOC: ER 04:56
DX: K29.71 Gastritis, unspecified, with bleeding (principal); R07.9 Chest pain, unspecified; R94.31 Abnormal electrocardiogram [ECG] [EKG]; I11.0 Hypertensive heart disease with heart failure; I50.9 Heart failure, unspecified; E11.9 Type 2 diabetes mellitus without complications; G89.29 Other chronic pain; N17.9 Acute kidney failure, unspecified; Z79.82 Long term (current) use of aspirin; Z79.02 Long term (current) use of antithrombotics/antiplatelets; Z79.84 Long term (current) use of oral hypoglycemic drugs; Z79.899 Other long term (current) drug therapy; Z95.5 Presence of coronary angioplasty implant and graft; Z86.718 Personal history of other venous thrombosis and embolism
CPT/HCPCS: 36415; 71045; 80048; 80076; 82272; 83690; 83880; 84484; 85025; 85379; 85610; 93005; 96374; 99284; J2405